=== PATIENT | female | born 1985 | race Hispanic/Latino ===

== ENCOUNTER 2016-10-02 11:13 | Inpatient (IN) | payer OTHER ==
[~2016-10-02] VITALS: Ht 157.5 cm; Wt 64.9 kg
[2016-10-02] MEDS ORDERED: Lactated Ringer's 1,000 ML IV PRN (11:48)
[2016-10-02] MEDS ORDERED: Oxytocin 10 Unit/mL Inj IM PRN ×2 (11:50→14:30)
[2016-10-02] MEDS ORDERED: fentaNYL-PF 50 mCg/mL 2 mL Inj IVPUSH PRN (11:50)
[2016-10-02] MEDS ORDERED: Sodium Chloride LOK Flush 10 mL Syringe IVFLUSH PRN (11:50)
[2016-10-02] MEDS ORDERED: Methylergonovine 0.2 mg/mL Inj IM PRN ×2 (11:50→14:30)
[2016-10-02] MEDS ORDERED: Ondansetron 2 mg/mL 2 mL Inj IVPUSH PRN (11:50)
[2016-10-02] MEDS ORDERED: Oxytocin 30 Units/500 mL LR 30 UNITS in IV Premix 1 EACH IV PRN ×2 (11:50→14:30)
[2016-10-02] MEDS ORDERED: Hemorrhage Kit, Post Partum XX ONE ×2 (11:50→14:30)
[2016-10-02] MEDS ORDERED: Carboprost 250 mCg/mL Inj IM PRN ×2 (11:50→14:30)
[2016-10-02] MEDS ORDERED: PREN1TAB25 PO (11:53)
[2016-10-02 11:59] LABS: Mean Corpuscular Hemoglobin 31.8 pg (27.0-35.0); Mean Corpuscular Volume 92.2 fL (81-100)
[2016-10-02] MEDS ORDERED: fentaNYL 2 mCg/mL-Bupiv 0.125% 100 ML EPIDURAL SCH ×2 (12:15)
[2016-10-02] MEDS ORDERED: EPHEDrine Sulfate 50 mg/mL Inj IVPUSH PRN (12:15)
[2016-10-02] MEDS ORDERED: Lactated Ringer's 500 ML IV ONE ×2 (12:15)
[2016-10-02] MEDS ORDERED: Lactated Ringer's 1,000 ML IV SCH ×3 (12:15→14:30)
[2016-10-02] MEDS ORDERED: Atropine 1 mg/10 mL (Code) Syringe IVPUSH PRN (12:15)
--- NOTE | 2016-10-02 13:30 | PCM.HPANE ---
Patient Data Date of Service: Oct 02, 2016 Surgeon Admitting Provider:Mitesh Barbosa MD Attending Provider:Mitesh Barbosa MD Primary Care Physician:Mitesh Barbosa MD Other Provider:Edith Espinal Anesthesia Reason for Visit Term Labor Check TERM LABOR CHECK Ht/WT & BMI Body Mass Index Allergies Coded Allergies: No Known Allergies (Verified , 10/02/16) Past Anesthesia History Anesthesia History: Denies:: Anesthesia Reactions Diabetes History Hx Diabetes?: No MRSA MRSA: No Medications Hypertension Medication: No Home Meds Incl Beta Gail: No Reported Medications Vit#96/Ferrous Fum/FA ( Tablet)1 Each Tablet1 Each PO DAILY 10/02/16 History History of ENT Problems?: No HEENT History: Denies:: Abnormal Airway Denture Type: None Teeth Condition: Within Normal Limits Hx of Heart Problems?: No Cardiovascular History: Denies:: Cardiac Surgery Hx of Respiratory Problem?: Yes Respiratory History: Positive for:: Asthma Hx Neurologic Problems?: Yes Neurological History: Positive for:: Headaches Hx of GI Problems?: No Hx of Problems?: No Female Hx: Positive for:: Currently Hx Musculoskeletal Problems?: No Hx of Psycho/Social Problems?: No Hx Surgeries?: No Hx Any Other Health Problems?: No Hx Diabetes: No Smoking Status: Never Smoker Stop/Bang Treated for Sleep Apnea?: No Do You Have a CPAP Machine?: No S-Snoring: Do You Snore Loudly: No T-Tired: feel tired, fatigued: No O-Obsered: Observed not breath: No P-Blood Pressure: treated: No B- Body Mass Index > 35 kg/m2: No A- Age over 50: No N- Neck Large Circumference: No G- Gender Male: No Risk Assessment Category Category 1A: Patient has history of documented sleep apnea, and HAS NOT received any narcotic, sedative or anesthesia administration during this stay. Category 1B: Patient has history of documented sleep apnea, and HAS received any narcotic , sedative or anesthesia administration during this stay Category 2: Patient has SUSPECTED Obstructive Sleep Apnea, and HAS received any narcotic , sedative or anesthesia administration during this stay. Category 3: Patient has SUSPECTED Obstructive Sleep Apnea and HAS NOT received narcotic, sedative or anesthesia administration during this stay. Category 4: Outpatient in Procedural Areas with known sleep apnea or who screen positive for High Risk via the STOP/BANG questionnaire. Exam Exam General Appearance: Alert, Oriented X3 HEENT/AIRWAY: MP 2 Lungs: Clear to Auscultation Heart: Exam Unremarkable Meds/Labs/Diagnostics Admission Meds Current Medications Lactated Ringer's (Lr) 1,000 ml @ 125 mls/hr Q8H IV Last administered on t 12:24; Start 10/02/16 at 12:15; Stop 10/03/16 at 12:16 Labs Test 10/02/16 11:45 White Blood Count 7.9th/mm3 (3.8-10.1) Red Blood Count 4.50mil/mm3 (3.90-5.20) Hemoglobin 14.3g/dL (12.0-15.6) Hematocrit 41.5% (35.0-46.0) Mean Corpuscular Volume 92.2fL (81-100) Mean Corpuscular Hemoglobin 31.8pg (27.0-35.0) Mean Corpuscular Hemoglobin Concent 34.5% (32.0-37.0) Red Cell Distribution Width 13.1% (12.3-15.4) Platelet Count 104bil/L (150-400) Plan Impression Patient chart reviewed, patient interviewed and anesthestic plan with risks, benefits, and alternatives discussed, and informed consent obtained. NPO per Anesth. Guidelines: Yes ASA Physical Status: ASA2 Mod Systemic Disease Anesthetic Plan: Epidural Bene/Risks/Altern/Consents: Yes HP Complete Prior to Induction: Yes Other On review of labs, PLTs now 104. Trend has been downwards. I have asked charge coordinator to discuss with OB. She presents today with elevated BP and downward trend in PLTs, making pre-eclampsia a consideration. At this time, further workup prior to placement of an epidural catheter is not needed as PLTs are 104 and there is no physical exam findings of coagulopathy. Rick Chavez MD Oct 02, 2016 13:30
[2016-10-02] MEDS ORDERED: HYDROcodone-APAP 5-325 mg Tablet PO PRN (14:30)
[2016-10-02] MEDS ORDERED: Witch Hazel-Glycerin Pads TOPICAL PRN (14:30)
[2016-10-02] MEDS ORDERED: LANOlin HPA 7 Gm Ointment TOPICAL PRN (14:30)
[2016-10-02] MEDS ORDERED: Benzocaine (Dermoplast) 20% 60 Gm Spray TOPICAL PRN (14:30)
--- NOTE | 2016-10-02 20:19 | PCM.ANEP1 ---
Post Anesthesia PACU Phase 1 Assessment Anesthetic Administered: Epidural Level of Alertness: Awake, talking NGUYEN's with Equal Strength: Yes Pain: No Pain Scale Score: 1 Nausea or Vomiting: No CV Function & Hydration Stable: Yes Airway Device: Oxygen Delivery: Room Air Lungs: Clear to Auscultation PACU Phase 2 Assessment Complications: No Follow up Care: No Patient Instructions Provided: Yes Comments moving all 4 extremities. Mild localized back pain (a minor ache). All questions answered. Pt seems satisfied with epidural experience. Rick Chavez MD Oct 02, 2016 20:19
[2016-10-03 07:10] LABS: Mean Corpuscular Hemoglobin 31.7 pg (27.0-35.0); Mean Corpuscular Volume 92.6 fL (81-100)
[2016-10-03] MEDS ORDERED: Measles-Mumps-Rubella Vaccine 0.5 mL Inj SUBQ ONE (09:30)
--- NOTE | 2016-10-03 09:42 | PCM.DIOB ---
Obstetrical Disch Instruction Date of Service: Oct 03, 2016 Dates of Hospitalization Date of Hospital Admission Oct 02, 2016 at 11:25 Providers Admitting Physician: Mitesh Barbosa MD Primary Care Physician: Mitesh Barbosa MD Attending Physician: Mitseh Barbosa MD Discharge Diagnosis Problems: (1) Encounter for full-term uncomplicated delivery Status: Acute ICD Code: O80 (2) Transient thrombocytopenia Status: Acute ICD Code: D69.6 Diet Discharge Diet: No restrictions Activity Discharge Activity-General: No restrictions Dressing and Incisional Care Hygiene: May shower Follow Up Plan Follow-up Provider (F9): Mitesh Barbosa MD Follow-up appointment: Weeks (6) Call your provider for: Fever or Chills, Shortness of breath, Heavy vaginal bleeding, Excessive constipation, Red painful breasts Mitesh Barbosa MD Oct 03, 2016 09:42
[2016-10-03] MEDS ORDERED: HYDR-4003 PO (09:43)
[2016-10-03] MEDS ORDERED: IBUP-1827 PO (09:43)
[2016-10-03] MEDS ORDERED: DOCU-41 PO (09:43)
--- NOTE | 2016-10-03 10:19 | HP ---
[address] [address] HISTORY AND PHYSICAL PATIENT: PEGGY GALVAN : 1985 MR#: [id number] ADMIT: 10/02/2016 JOB ID: [id number] DATE OF SERVICE: 10/02/2016 CHIEF COMPLAINT: Increasing contractions at term, along with rupture of membranes. HISTORY OF PRESENT ILLNESS: A 30-year-old, 3, para 1, SAB 1, with an EDC of October 04, 2016, presents at 39 and 5/7 weeks gestation with spontaneous rupture of membranes a few hours ago. She called my office, we recommended she come to the Center. She was found to be 3 cm dilated, actively mayra, requesting an epidural. When I arrived, she is completely dilated with an increasing urge to push. LABORATORY DATA: Notable for being blood type O-positive, GBS negative screened September 02, 2016, HIV and hepatitis B surface antigen and HIV negative. Rubella NOT immune. Quad screen negative. Normal glucose tolerance test at 27 weeks. Normal free T4 and her Pap was normal in February 2016. Her CBC has been normal throughout with normal platelets. Urine culture at the onset of showed mixed nadege. PAST GYNECOLOGIC HISTORY: 3, para 1, SAB 1. First was an SAB in the first trimester. Second in 2006 resulted in a six and change pound female, vaginal delivery uncomplicated. PAST MEDICAL HISTORY: 1. Prior varicella. 2. Anxiety. 3. Prior history of chlamydia, treated. 4. Rubella not immune. ALLERGIES: None known. CURRENT MEDICATIONS: vitamins 1 tablet daily. 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 She is and nonsmoker. She previously denied recreational drug use or alcohol use. PHYSICAL EXAMINATION: Please see nursing notes for vital signs. She was noted to be mildly hypertensive, but is in significant pain prior to receiving an epidural. Vaginal exam shows her completely dilated, fetus is at +1 station, vertex position, 100% effaced. ASSESSMENT: 1. Two days prior to her due date. 2. Group B Streptococcus (GBS) negative. 3. Active labor at term. 4. Incidental finding of thrombocytopenia. Her platelets returned at 104,000. She has had no excess bleeding and they have been normal throughout . This sometimes occurs at term in women. 5. Anxiety. 6. Rubella not immune. PLAN: Patient went onto deliver as below. DELIVERY NOTE: Delivery position: JARVIS. Delivery weight: 3459 g, viable female. Apgars: 9 and 9. Umbilical cord: Three-vessel cord. Normal length and appearance. EBL: 200 cc. Placenta: Central cord insertion. No evidence of retained fragments. Moderately heavy calcifications noted on the maternal side. Anesthesia: Epidural. Lacerations: Superficial bilateral labial abrasions, not requiring repair. Complications: None. The patient was found to be complete with an increasing urge to push and rectal pressure. She pushed effectively for about 20 minutes, brought the head down which delivered in JARVIS position. No nuchal cord was identified. Shoulders delivered easily. The was handed off to nursing and the patient for additional stimulation. Cord clamped after a 2 minute delay and cord blood collected and sent. Perineum was inspected and showed shallow abrasions that did not appear to require repair on both labia. Perineum was otherwise intact. Placenta delivered a few minutes later spontaneously with gentle traction on the cord as assistance. Bleeding slowed promptly after delivery with fundal massage and IV oxytocin. Sponge and needle counts were correct after delivery. Patient plans to breast feed. She is rubella not immune and will receive a MMR. She did not have excessive bleeding and the plan is simply to observe platelets and bleeding. MATEO
--- NOTE | 2016-10-03 11:09 | DIS ---
[address] [address] DISCHARGE SUMMARY PATIENT: PEGGY GALVAN : 1985 MR#: [id number] ADMIT: 10/02/2016 JOB ID: [id number] DIS: 10/03/2016 DISCHARGE DIAGNOSES: 1. Spontaneous vaginal delivery at 39-5/7 weeks. 2. Anxiety. 3. Thrombocytopenia without significant hemorrhage. Discharge platelets 88,000. 4. Rubella not immune, received MMR. DISCHARGE MEDICATIONS: 1. Ibuprofen 600 mg q.6 hours p.r.n. pain. 2. Hydrocodone/acetaminophen 5/325 mg 1-2 tablets q.4 hours p.r.n. pain, #10 , no refills. 3. Docusate sodium 100 mg p.o. b.i.d. p.r.n. constipation. 4. vitamins 1 tablet daily. DISCHARGE INSTRUCTIONS: 1. Followup at six weeks. 2. Activity ad leelee. 3. Diet ad leelee. 4. Call for increased bleeding, fevers, signs of infection or other problems. HOSPITAL COURSE: The patient is a now 30-year-old 3, para 2, SAB 1, who presented at 39-5/7 weeks with rupture of membranes and active labor. She went on to have an uncomplicated vaginal delivery to a 3459 g viable female in JARVIS position. she is caring for her well. Her pain is controlled with ibuprofen. Her platelets were noted to be low initially at 104,000 falling to 88,000, but she has no excessive bleeding and I have seen this transiently in women at term and the plan is simply to repeat outpatient labs if any symptoms. The patient was rubella not immune and received a MMR. She will followup in my office in six weeks, sooner if problems. MATEO
[2016-10-03 14:47] VITALS: BP 101/65; PULSE 67; RESP 12
[2016-10-03] MEDS ORDERED: Bupivacaine 0.5% 50 mL Inj ONE (16:11)
== END 2016-10-03 16:12 | disposition home or self-care (01) | DRG 775 ==
LOC: FBCO 11:13 → FBC 11:25
PROVIDERS: ADMIT Family Medicine; ATTEND Family Medicine
PROC: 10E0XZZ Delivery of Products of Conception, External Approach (ICD-10-PCS; principal; 2016-10-02)
DX: O99.12 Other diseases of the blood and blood-forming organs and certain disorders involving the immune mechanism complicating childbirth (principal); D69.6 Thrombocytopenia, unspecified; Z3A.39 39 weeks gestation of pregnancy; Z37.0 Single live birth; O99.344 Other mental disorders complicating childbirth; F41.9 Anxiety disorder, unspecified; O62.3 Precipitate labor